=== PATIENT | female | born 1970 ===

== ENCOUNTER 2019-06-22 05:00 | Day surgery (SDC) | payer OTHER ==
[2019-06-22] MEDS ORDERED: CODE1TAB37 PO (10:59)
[2019-06-22] MEDS ORDERED: CELEBREX200MG PO (11:03)
== END 2019-06-22 13:30 | disposition home or self-care (01) ==
LOC: CIR.AMB 05:00
DX: D27.0 Benign neoplasm of right ovary (principal)